=== PATIENT | female | born 1955 | race Two or more races ===

== ENCOUNTER → 2023-11-30 10:59 | Outpatient (REF) | payer MEDICAID, SELFPAY | LOC: RAD 10:59 | PROVIDERS: ATTENDING PHYSICIAN Internal Medicine | DX: J18.9 Pneumonia, unspecified organism (principal) | CPT/HCPCS: 71046 ==

== ENCOUNTER → 2025-02-06 13:11 | Outpatient (REF) | payer OTHER, SELFPAY | LOC: HWWDC 13:11 | PROVIDERS: ATTENDING PHYSICIAN Family Medicine | DX: Z12.31 Encounter for screening mammogram for malignant neoplasm of breast (principal); M25.511 Pain in right shoulder; M25.561 Pain in right knee; M25.562 Pain in left knee; G89.29 Other chronic pain | CPT/HCPCS: 73030; 73564; 77063; 77067 ==

== ENCOUNTER → 2025-06-23 08:30 | Outpatient (REF) | payer OTHER, SELFPAY | LOC: HWRAD 08:30 | PROVIDERS: ATTENDING PHYSICIAN Student in an Organized Health Care Education/Training Program; FAMILY PHYSICIAN Family Medicine | DX: N95.0 Postmenopausal bleeding (principal) | CPT/HCPCS: 76830; 76856 ==